=== PATIENT | female | born 1930 | race Caucasian/White ===

== ENCOUNTER 2020-12-01 17:28 | Observation (INO) | payer OTHER ==
[2020-12-01 20:54] LABS: BASO % 0.6 % (0-2.0); EOS % 1.2 % (0-4.5); HEMATOCRIT 35.1 % (32.4-45.2); HEMOGLOBIN 11.7 GM/dL (10.7-15.3); LYMPH % 31.6 % (8-40); MCH 31.4 pg (25.7-33.7); MCHC 33.4 g/dl (32.0-36.0); MEAN CELL VOLUME 94.2 fl (80-96); MEAN PLT VOLUME 8.6 fl (7.5-11.1); MONO % 10.2 % (3.8-10.2); NEUT % 56.4 % (42.8-82.8); PLATELET COUNT 203 10^3/uL (134-434); RBC 3.72 M/mm3 (3.60-5.2); RDW 14.6 % (11.6-15.6); WHITE BLOOD COUNT 10.8 K/mm3 (4.0-10.0)
[2020-12-01 21:02] LABS: INR 0.98 (0.83-1.09); PROTHROMBIN TIME (PATIENT) 11.9 SEC (9.7-13.0)
[2020-12-01 21:05] LABS: ACTIVATED PTT 23.8 SECONDS (25.2-36.5)
[2020-12-01 21:19] LABS: CHLORIDE 108 mmol/L (98-107); SODIUM 141 mmol/L (136-145)
[2020-12-01 21:21] LABS: ALBUMIN 3.4 g/dl (3.4-5.0); CALCIUM 9.3 mg/dL (8.5-10.1); CO2 24 mmol/L (21-32); GLUCOSE,RANDOM 74 mg/dL (74-106)
[2020-12-01 21:24] LABS: CREATININE 0.9 mg/dL (0.55-1.3); SGOT/AST 69 U/L (15-37); SGPT/ALT 21 U/L (13-61)
[2020-12-01 21:26] LABS: BILIRUBIN,TOTAL 0.5 mg/dL (0.2-1); TOT PROT 7.2 g/dl (6.4-8.2)
[2020-12-01 21:27] LABS: ALK PHOS 83 U/L (45-117)
[2020-12-01 21:34] LABS: ANION GAP 9 MMOL/L (8-16)
[2020-12-01 23:21] LABS: EPI CELLS 28 /uL (0-25.1); HYALINE CASTS 1 /uL (0-3.1); URINE APPEARANCE CLEAR; URINE BACTERIA 483 /uL (0-1359); URINE BILIRUBIN NEGATIVE (NEGATIVE); URINE COLOR YELLOW; URINE GLUCOSE (UA) NEGATIVE (NEGATIVE); URINE KETONE TRACE (NEGATIVE); URINE LEUK ESTERASE 1+ (NEGATIVE); URINE NITRITE NEGATIVE (NEGATIVE); URINE PROTEIN NEGATIVE (NEGATIVE); URINE RBC 9 /uL (0-23.9); URINE WBC 86 /uL (0-25.8)
[2020-12-02] MEDS ORDERED: CEFTRIAXONE 1 GM in DEXTROSE 5%-WATER - 50 ML IVPB ONE (01:39)
[2020-12-02] MEDS ORDERED: ACETAMINOPHEN 325 MG TABLET (FP) PO PRN (01:43)
[2020-12-02] MEDS ORDERED: DOCUSATE SODIUM 100 MG CAPSULE (FP) PO ONE (02:48)
[2020-12-02] MEDS ORDERED: CEFTRIAXONE 1 GM/50 ML BAG ONE (02:48)
[2020-12-02] MEDS: DOCUSATE SODIUM 100 MG CAPSULE (FP) PO SCH ×3 (03:06→21:39)
[2020-12-02 03:49] LABS: ALBUMIN 2.9 g/dl (3.4-5.0); BLOOD UREA NITROGEN 17.8 mg/dL (7-18)
[2020-12-02 03:54] LABS: BILIRUBIN,TOTAL 0.5 mg/dL (0.2-1)
[2020-12-02 04:03] LABS: CALCIUM 8.9 mg/dL (8.5-10.1); CREATININE 0.8 mg/dL (0.55-1.3)
[2020-12-02 05:34] VITALS: BMI 21.9
[2020-12-02] MEDS ORDERED: SODIUM PHOSPHATE/NA BIPHOS 133 ML ENEMA RC ONE (08:00)
[2020-12-02 08:32] LABS: HEMATOCRIT 30.7 % (32.4-45.2); HEMOGLOBIN 10.3 GM/dL (10.7-15.3); MCH 31.5 pg (25.7-33.7); MCHC 33.6 g/dl (32.0-36.0); MEAN CELL VOLUME 93.6 fl (80-96); MEAN PLT VOLUME 8.4 fl (7.5-11.1); PLATELET COUNT 184 10^3/uL (134-434); RBC 3.28 M/mm3 (3.60-5.2); RDW 14.7 % (11.6-15.6); WHITE BLOOD COUNT 7.7 K/mm3 (4.0-10.0)
[2020-12-02 08:52] LABS: CALCIUM 8.8 mg/dL (8.5-10.1)
[2020-12-02 08:53] LABS: BLOOD UREA NITROGEN 15.8 mg/dL (7-18)
[2020-12-02 08:55] LABS: PHOSPHOROUS 3.3 mg/dL (2.5-4.9)
[2020-12-02 08:56] LABS: BILIRUBIN,TOTAL 0.5 mg/dL (0.2-1); CREATININE 0.8 mg/dL (0.55-1.3); TOT PROT 5.8 g/dl (6.4-8.2)
[2020-12-02] MEDS: ENOXAPARIN NA (PORCINE) 40 MG/0.4 ML DISP.SYRIN SQ SCH (10:55)
[2020-12-02] MEDS: POLYETHYLENE GLYCOL 3350 119 GM BTL PO SCH ×2 (11:58→21:39)
[2020-12-02] MEDS: POLYETHYLENE GLYCOL (HEALTHYLAX) 3350 17 GM PACKET PO SCH (13:38)
[2020-12-02] MEDS: metoPROLOL SUCCINATE 25 MG TAB.SR.24H (FP) PO SCH (14:47)
[2020-12-02] MEDS: ATORVASTATIN CA 10 MG TABLET (FP) PO SCH (21:39)
[2020-12-03] MEDS ORDERED: DEXTROSE 5%-WATER - 50 ML IVPB ONE (09:13)
[2020-12-03] MEDS ORDERED: cefTRIAXone SODIUM 1 GM VIAL ONE (09:13)
[2020-12-03 10:06] LABS: HEMATOCRIT 32.8 % (32.4-45.2); HEMOGLOBIN 10.9 GM/dL (10.7-15.3); MCH 31.3 pg (25.7-33.7); MCHC 33.4 g/dl (32.0-36.0); MEAN CELL VOLUME 93.7 fl (80-96); MEAN PLT VOLUME 8.3 fl (7.5-11.1); PLATELET COUNT 209 10^3/uL (134-434); RDW 14.5 % (11.6-15.6); WHITE BLOOD COUNT 11.8 K/mm3 (4.0-10.0)
[2020-12-03] MEDS: WATER IVPB SCH ×2 (10:10→10:18)
[2020-12-03] MEDS: CEFTRIAXONE IVPB SCH ×2 (10:10→10:18)
[2020-12-03] MEDS: DEXTROSE 5% IVPB SCH ×2 (10:10→10:18)
[2020-12-03] MEDS: DOCUSATE SODIUM 100 MG CAPSULE (FP) PO SCH (10:10)
[2020-12-03] MEDS: metoPROLOL SUCCINATE 25 MG TAB.SR.24H (FP) PO SCH (10:11)
[2020-12-03] MEDS: POLYETHYLENE GLYCOL (HEALTHYLAX) 3350 17 GM PACKET PO SCH (10:11)
[2020-12-03] MEDS: ENOXAPARIN NA (PORCINE) 40 MG/0.4 ML DISP.SYRIN SQ SCH (10:11)
[2020-12-03 10:30] LABS: BLOOD UREA NITROGEN 14.5 mg/dL (7-18); MAGNESIUM 1.9 mg/dL (1.8-2.4)
[2020-12-03 10:31] LABS: CALCIUM 8.5 mg/dL (8.5-10.1)
[2020-12-03 10:33] LABS: CREATININE 0.9 mg/dL (0.55-1.3)
[2020-12-03 10:34] LABS: PHOSPHOROUS 3.7 mg/dL (2.5-4.9)
[2020-12-03] MEDS ORDERED: DOCUSATE SODIUM 100 MG CAPSULE (FP) PO PRN (13:08)
[2020-12-03] MEDS ORDERED: POLYETHYLENE GLYCOL (HEALTHYLAX) 3350 17 GM PACKET PO PRN (13:08)
[2020-12-03] MEDS: ATORVASTATIN CA 10 MG TABLET (FP) PO SCH (21:29)
[2020-12-03] MEDS ORDERED: PT OWN MED DRAWER 7, Y5N ONE (21:31)
[2020-12-04 09:32] LABS: HEMATOCRIT 31.3 % (32.4-45.2); HEMOGLOBIN 10.6 GM/dL (10.7-15.3); MCH 31.8 pg (25.7-33.7); MCHC 33.9 g/dl (32.0-36.0); MEAN CELL VOLUME 93.7 fl (80-96); MEAN PLT VOLUME 8.3 fl (7.5-11.1); PLATELET COUNT 209 10^3/uL (134-434); RBC 3.34 M/mm3 (3.60-5.2); RDW 14.5 % (11.6-15.6); WHITE BLOOD COUNT 9.6 K/mm3 (4.0-10.0)
[2020-12-04] MEDS ORDERED: DEXTROSE 5%-WATER - 50 ML IVPB ONE (09:39)
[2020-12-04] MEDS ORDERED: cefTRIAXone SODIUM 1 GM VIAL ONE (09:39)
[2020-12-04] MEDS: metoPROLOL SUCCINATE 25 MG TAB.SR.24H (FP) PO SCH (09:51)
[2020-12-04] MEDS: ENOXAPARIN NA (PORCINE) 40 MG/0.4 ML DISP.SYRIN SQ SCH (09:51)
[2020-12-04] MEDS: WATER IVPB SCH (09:52)
[2020-12-04] MEDS: DEXTROSE 5% IVPB SCH (09:52)
[2020-12-04] MEDS: CEFTRIAXONE IVPB SCH (09:52)
[2020-12-04 09:56] LABS: BLOOD UREA NITROGEN 17.8 mg/dL (7-18); MAGNESIUM 2.1 mg/dL (1.8-2.4)
[2020-12-04 09:58] LABS: CALCIUM 8.6 mg/dL (8.5-10.1); PHOSPHOROUS 3.2 mg/dL (2.5-4.9)
[2020-12-04] MEDS: SODIUM CHLORIDE 0.45% 1,000 ML IV SCH (20:00)
[2020-12-04] MEDS: ATORVASTATIN CA 10 MG TABLET (FP) PO SCH (21:17)
[2020-12-05 09:35] LABS: BASO % 0.9 % (0-2.0); EOS % 2.6 % (0-4.5); HEMATOCRIT 34.9 % (32.4-45.2); HEMOGLOBIN 11.6 GM/dL (10.7-15.3); LYMPH % 36.8 % (8-40); MCH 31.6 pg (25.7-33.7); MCHC 33.2 g/dl (32.0-36.0); MEAN CELL VOLUME 95.3 fl (80-96); MEAN PLT VOLUME 9.2 fl (7.5-11.1); MONO % 9.9 % (3.8-10.2); NEUT % 49.8 % (42.8-82.8); PLATELET COUNT 143 10^3/uL (134-434); RBC 3.66 M/mm3 (3.60-5.2); RDW 14.7 % (11.6-15.6); WHITE BLOOD COUNT 8.4 K/mm3 (4.0-10.0)
[2020-12-05 09:40] LABS: BLOOD UREA NITROGEN 22.3 mg/dL (7-18); CALCIUM 8.4 mg/dL (8.5-10.1)
[2020-12-05 09:43] LABS: CREATININE 0.8 mg/dL (0.55-1.3); PHOSPHOROUS 3.6 mg/dL (2.5-4.9)
[2020-12-05] MEDS ORDERED: cefTRIAXone SODIUM 1 GM VIAL ONE (10:53)
[2020-12-05] MEDS ORDERED: DEXTROSE 5%-WATER - 50 ML IVPB ONE (10:53)
[2020-12-05] MEDS: WATER IVPB SCH (11:32)
[2020-12-05] MEDS: DEXTROSE 5% IVPB SCH (11:32)
[2020-12-05] MEDS: ENOXAPARIN NA (PORCINE) 40 MG/0.4 ML DISP.SYRIN SQ SCH (11:32)
[2020-12-05] MEDS: metoPROLOL SUCCINATE 25 MG TAB.SR.24H (FP) PO SCH (11:32)
[2020-12-05] MEDS: CEFTRIAXONE IVPB SCH (11:32)
[2020-12-05] MEDS: SODIUM CHLORIDE 0.45% 1,000 ML IV SCH (18:09)
[2020-12-05] MEDS: ATORVASTATIN CA 10 MG TABLET (FP) PO SCH (22:54)
[2020-12-06] MEDS ORDERED: DEXTROSE 5%-WATER - 50 ML IVPB ONE (10:17)
[2020-12-06] MEDS ORDERED: cefTRIAXone SODIUM 1 GM VIAL ONE (10:17)
[2020-12-06] MEDS: metoPROLOL SUCCINATE 25 MG TAB.SR.24H (FP) PO SCH (10:20)
[2020-12-06] MEDS: WATER IVPB SCH (10:20)
[2020-12-06] MEDS: CEFTRIAXONE IVPB SCH (10:20)
[2020-12-06] MEDS: DEXTROSE 5% IVPB SCH (10:20)
[2020-12-06] MEDS: ENOXAPARIN NA (PORCINE) 40 MG/0.4 ML DISP.SYRIN SQ SCH (10:22)
[2020-12-06] MEDS ORDERED: NYSTATIN POWDER 100,000 UNITS/GM - 15 GM TOPICAL POWDER TP ONE (11:34)
[2020-12-06] MEDS ORDERED: LACTATED RINGERS SOLUTION 1000 ML INFUS.BAG IV ONE (13:25)
[2020-12-06 15:49] VITALS: BP 119/54; PULSE 16; TEMP 97.8
[2020-12-06] MEDS ORDERED: NYSTATIN POWDER 100,000 UNITS/GM - 15 GM TOPICAL POWDER TP SCH (22:00)
== END 2020-12-06 18:07 ==
LOC: JER 17:28 → EDSEX 17:28 → INTOOBSV 20:22 → JERBED 20:22 → UNDOADMOB 20:22 → J5S 12-02 05:15 → JERBED 12-02 05:15 → J5S 12-02 13:54 → JERBED 12-02 13:54
PROVIDERS: ADMIT Internal Medicine; ATTEND Internal Medicine
PROC: 3E023GC Introduction of Other Therapeutic Substance into Muscle, Percutaneous Approach (ICD-10-PCS; principal; 2020-12-02)
PROC: 3E0337Z Introduction of Electrolytic and Water Balance Substance into Peripheral Vein, Percutaneous Approach (ICD-10-PCS; 2020-12-02)
PROC: 3E03329 Introduction of Other Anti-infective into Peripheral Vein, Percutaneous Approach (ICD-10-PCS; 2020-12-02)
DX: N39.0 Urinary tract infection, site not specified (principal); I12.9 Hypertensive chronic kidney disease with stage 1 through stage 4 chronic kidney disease, or unspecified chronic kidney disease; Z91.81 History of falling; G25.0 Essential tremor; K59.00 Constipation, unspecified; N18.9 Chronic kidney disease, unspecified
CPT/HCPCS: 36415; 70450-TC; 71046-TC-FY; 72125-TC; 72131-TC; 72170-TC-FY; 72192-TC; 80048; 80053; 81003; 83735; 83880; 84100; 84443; 84484; 85025; 85027; 85610; 85730; 87086; 93005; 93010; 93306-TC; 96361; 96365; 96366; 96372; 97116-GP; 97161-GP; 99285-25; C9803; G0378; U0003; U0005

== ENCOUNTER 2020-12-13 17:38 | Observation (INO) | payer OTHER ==
[2020-12-13 20:32] LABS: BASO % 0.9 % (0-2.0); EOS % 1.1 % (0-4.5); HEMATOCRIT 36.8 % (32.4-45.2); HEMOGLOBIN 12.4 GM/dL (10.7-15.3); MCH 31.6 pg (25.7-33.7); MCHC 33.6 g/dl (32.0-36.0); MEAN CELL VOLUME 93.9 fl (80-96); MEAN PLT VOLUME 8.4 fl (7.5-11.1); PLATELET COUNT 284 10^3/uL (134-434); RBC 3.92 M/mm3 (3.60-5.2); RDW 14.3 % (11.6-15.6); WHITE BLOOD COUNT 10.1 K/mm3 (4.0-10.0)
[2020-12-13 20:53] LABS: ALBUMIN 3.3 g/dl (3.4-5.0); BLOOD UREA NITROGEN 33.1 mg/dL (7-18); CALCIUM 9.3 mg/dL (8.5-10.1)
[2020-12-13 20:58] LABS: BILIRUBIN,TOTAL 0.1 mg/dL (0.2-1); TOT PROT 6.9 g/dl (6.4-8.2)
[2020-12-13] MEDS ORDERED: SODIUM CHLORIDE 1,000 ML IV SCH (23:00)
[2020-12-13] MEDS ORDERED: POLYETHYLENE GLYCOL (HEALTHYLAX) 3350 17 GM PACKET ONE (23:29)
[2020-12-13] MEDS: POLYETHYLENE GLYCOL (HEALTHYLAX) 3350 17 GM PACKET PO SCH (23:36)
[2020-12-14 01:25] LABS: PH,URINE 5.5 (5.0-8.0); URINE APPEARANCE CLEAR; URINE BILIRUBIN NEGATIVE (NEGATIVE); URINE COLOR YELLOW; URINE GLUCOSE (UA) NEGATIVE (NEGATIVE); URINE KETONE NEGATIVE (NEGATIVE); URINE LEUK ESTERASE NEGATIVE (NEGATIVE); URINE NITRITE NEGATIVE (NEGATIVE); URINE PROTEIN NEGATIVE (NEGATIVE); URINE UROBILINOGEN 0.2 mg/dL (0.2-1.0)
[2020-12-14 09:27] LABS: HEMATOCRIT 34.4 % (32.4-45.2); HEMOGLOBIN 11.6 GM/dL (10.7-15.3); MCH 31.6 pg (25.7-33.7); MCHC 33.7 g/dl (32.0-36.0); MEAN CELL VOLUME 93.8 fl (80-96); MEAN PLT VOLUME 8.5 fl (7.5-11.1); PLATELET COUNT 275 10^3/uL (134-434); RBC 3.66 M/mm3 (3.60-5.2); RDW 13.9 % (11.6-15.6); WHITE BLOOD COUNT 10.8 K/mm3 (4.0-10.0)
[2020-12-14 09:58] LABS: CREATININE 0.9 mg/dL (0.55-1.3)
[2020-12-14 10:00] LABS: ALBUMIN 3.1 g/dl (3.4-5.0); BLOOD UREA NITROGEN 30.8 mg/dL (7-18)
[2020-12-14 10:02] LABS: BILIRUBIN,TOTAL 0.3 mg/dL (0.2-1); CALCIUM 9.1 mg/dL (8.5-10.1); PHOSPHOROUS 3.4 mg/dL (2.5-4.9); TOT PROT 6.3 g/dl (6.4-8.2)
[2020-12-14 10:12] LABS: MAGNESIUM 2.3 mg/dL (1.8-2.4)
[2020-12-14] MEDS: POLYETHYLENE GLYCOL (HEALTHYLAX) 3350 17 GM PACKET PO SCH ×2 (10:20→22:06)
[2020-12-14] MEDS: metoPROLOL SUCCINATE 25 MG TAB.SR.24H (FP) PO SCH (10:20)
[2020-12-14 13:14] VITALS: BMI 21.9
[2020-12-14] MEDS: ATORVASTATIN CA 10 MG TABLET (FP) PO SCH (22:06)
[2020-12-15] MEDS: MULTIVITAMINS (DAILY MVI) TABLET (FP) PO SCH (10:03)
[2020-12-15] MEDS: POLYETHYLENE GLYCOL (HEALTHYLAX) 3350 17 GM PACKET PO SCH ×2 (10:03→21:06)
[2020-12-15] MEDS: metoPROLOL SUCCINATE 25 MG TAB.SR.24H (FP) PO SCH (10:03)
[2020-12-15] MEDS: ATORVASTATIN CA 10 MG TABLET (FP) PO SCH (21:06)
[2020-12-16] MEDS ORDERED: ACETAMINOPHEN 325 MG TABLET (FP) PO ONE (05:00)
[2020-12-16] MEDS: MULTIVITAMINS (DAILY MVI) TABLET (FP) PO SCH (09:53)
[2020-12-16] MEDS: metoPROLOL SUCCINATE 25 MG TAB.SR.24H (FP) PO SCH (09:53)
[2020-12-16] MEDS: HEPARIN NA (PORCINE) 5,000 UNITS/ML 1ML VIAL SQ SCH ×2 (09:54→21:09)
[2020-12-16] MEDS: POLYETHYLENE GLYCOL (HEALTHYLAX) 3350 17 GM PACKET PO SCH ×2 (09:54→21:10)
[2020-12-16] MEDS: NYSTATIN 100,000 UNIT/GM TOPICAL CREAM 15 GM TUBE TP SCH ×2 (09:54→21:10)
[2020-12-16] MEDS ORDERED: PT OWN MED DRAWER 7, Y5N ONE (21:03)
[2020-12-16] MEDS: ATORVASTATIN CA 10 MG TABLET (FP) PO SCH (21:09)
[2020-12-17] MEDS: NYSTATIN 100,000 UNIT/GM TOPICAL CREAM 15 GM TUBE TP SCH (09:57)
[2020-12-17] MEDS: HEPARIN NA (PORCINE) 5,000 UNITS/ML 1ML VIAL SQ SCH (09:57)
[2020-12-17] MEDS: metoPROLOL SUCCINATE 25 MG TAB.SR.24H (FP) PO SCH (09:57)
[2020-12-17] MEDS: MULTIVITAMINS (DAILY MVI) TABLET (FP) PO SCH (09:57)
[2020-12-17] MEDS: POLYETHYLENE GLYCOL (HEALTHYLAX) 3350 17 GM PACKET PO SCH ×2 (09:57→21:12)
[2020-12-17 21:37] VITALS: BP 136/71; PULSE 70; TEMP 98.1
== END 2020-12-17 21:55 ==
LOC: JER 17:38 → JERBED 21:44 → INTOOBSV 21:44 → J5S 12-14 03:55
PROVIDERS: ADMIT Internal Medicine; ATTEND Family Medicine
PROC: 3E023GC Introduction of Other Therapeutic Substance into Muscle, Percutaneous Approach (ICD-10-PCS; principal; 2020-12-13)
PROC: 3E0337Z Introduction of Electrolytic and Water Balance Substance into Peripheral Vein, Percutaneous Approach (ICD-10-PCS; 2020-12-13)
DX: R62.7 Adult failure to thrive (principal); G20 Parkinson's disease; R53.1 Weakness; R26.2 Difficulty in walking, not elsewhere classified; I12.9 Hypertensive chronic kidney disease with stage 1 through stage 4 chronic kidney disease, or unspecified chronic kidney disease; R63.0 Anorexia; E78.5 Hyperlipidemia, unspecified; K59.00 Constipation, unspecified; I47.1 Supraventricular tachycardia; K76.9 Liver disease, unspecified; R01.1 Cardiac murmur, unspecified; N39.0 Urinary tract infection, site not specified; R25.1 Tremor, unspecified; D64.89 Other specified anemias; Z91.81 History of falling; Z87.828 Personal history of other (healed) physical injury and trauma; N18.9 Chronic kidney disease, unspecified
CPT/HCPCS: 36415; 80053; 81003; 82607; 82746; 83735; 84100; 85025; 85027; 87086; 93005; 93010; 96360; 96372; 97116-GP; 97161-GP; 99285-25; C9803; G0378; J1644; U0003; U0005